=== PATIENT | female | born 1960 | race Caucasian/White ===

== ENCOUNTER 2019-01-24 09:30 | Outpatient (CLI) | payer MEDICARE ==
[~2019-01-24] VITALS: Ht 160 cm; Wt 69.1 kg
[2019-01-24] MEDS ORDERED: IBUP-1780 PO (09:39)
[2019-01-24] MEDS ORDERED: BUPR1FIL3 SL (09:39)
[2019-01-24] MEDS ORDERED: BUPR100T15 PO (09:39)
[2019-01-24] MEDS ORDERED: VALS1TAB80 PO (09:39)
[2019-01-24] MEDS ORDERED: THYR90TA PO (09:39)
[2019-01-24] MEDS ORDERED: LORA10TA76 PO (09:39)
[2019-01-26] MEDS ORDERED: PANT40TA3 PO (11:54)
== END 2019-01-24 10:10 | disposition home or self-care (01) ==
LOC: PREOP 09:30
PROVIDERS: ATTEND Surgery
DX: Z01.818 Encounter for other preprocedural examination (principal)